=== PATIENT | female | born 1975 | race Caucasian/White ===

== ENCOUNTER 2017-02-13 00:15 | Emergency (ER) | payer OTHER ==
[2017-02-13] MEDS ORDERED: Sodium Chloride 0.9% 10 ML Syringe FLUSH PRN (00:30)
[2017-02-13] MEDS ORDERED: Ketorolac 30 MG/ML SDV IVPUSH ONE (00:34)
[2017-02-13] MEDS ORDERED: methylPREDNISolone Sodium Succinate 125 MG/2 ML SDV IV ONE (00:34)
[2017-02-13 02:39] LABS: CHLORIDE,CL 104 mmol/L (98-107); SODIUM,NA 137 mmol/L (136-145)
[2017-02-13] MEDS ORDERED: Azithromycin 250 MG Tab PO ONE (02:43)
[2017-02-13 03:24] VITALS: BP 156/87
--- NOTE | 2017-02-13 06:56 | ER ---
Date of Service: 02/13/2017 SUBJECTIVE: Brisa presents to the emergency room with complaints of substernal chest pain. The patient states that the discomfort is respirophasic in nature. She states that she has had a nonproductive cough for several days as well. She is a tobacco user and does smoke approximately a pack of cigarettes per day. The patient states that the discomfort is located to the midsternal area and again is worse with deep breathing and movement. PAST MEDICAL HISTORY: 1. Cholecystectomy. 2. depression. 3. 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 MEDICATIONS: 1. Nortriptyline 10 mg at bedtime. 2. Zolpidem 12.5 mg at bedtime. ALLERGIES: NKDA. REVIEW OF SYSTEMS: General: No fever or chills. HEENT: No sore throat, rhinorrhea, or congestion. Respiratory: No shortness of breath. Cardiac: Please see history of present illness. Denies any jaw, arm, neck, or back pain. Denies any diaphoresis. GI: No nausea, vomiting, or diarrhea. No melena, hematochezia, or hematemesis. : Denies any dysuria. Musculoskeletal: No myalgias or arthralgias. Neurologic: No fainting, blackouts, or lightheadedness. PHYSICAL EXAMINATION: General: This is a 41-year-old female patient. No acute distress. Vital Signs: Blood pressure initially 171/110, was rechecked and was found to be 160/70, pulse rate is 111, temperature is 37.7, respiratory rate is 16, and O2 saturations 99% on room air. Skin: Warm, pink, and dry. HEENT: Mouth, oral mucosa is moist. Lungs: Diminished in the mid lung cortes. Heart: Regular rate and rhythm. Abdomen: Soft, nontender. There is no hepatosplenomegaly or masses noted. Extremities: Without edema. Neurologic: She is alert and oriented. Answers all questions appropriately. Her speech is fluent. Her gait is within normal limits. RADIOGRAPHIC DATA: PA and lateral chest x-ray was obtained. She did have evidence of some increased peribronchial markings consistent with bilateral bronchitis. No obvious infiltrate noted. LABORATORY DATA: WBCs 7.5, hemoglobin is 15.2, platelets are 322. PT is 11.1, INR is 1.0, D-dimer is 0.33. Comprehensive metabolic panel was obtained. Sodium is 137, potassium is 3.7, chloride is 104, bicarb is 23, BUN is 4, creatinine is 0.8. Creatinine clearance is 87.51. GFR is greater than 60. Glucose is 104. Lactic acid is 0.6, calcium is 8.2, corrected calcium is 8.76. Total bilirubin is 0.3. AST is 11, ALT is 24, alkaline phosphatase is 67, CK is 55, troponin is less than 0.017. C-reactive protein is less than 0.2. Albumin is 3.3. TSH is 1.129. EMERGENCY ROOM COURSE: IV access was established. The patient was given Solu- Medrol 125 mg IV and Toradol 30 mg IV. She did report improvement in her chest discomfort. She stated that her pain improved from an 8 to a 4. ASSESSMENT: 1. Acute bronchitis. 2. Early chronic obstructive pulmonary disease. 3. Costochondritis. PLAN: The patient was started on prednisone 40 mg daily for 5 days. She was given azithromycin 500 mg here in the ER. We will start her on Zithromax 250 mg once daily on days 2 through 5. For her chest discomfort, ibuprofen or naproxen. Follow up in the clinic in the next 5 to 7 days. All questions were answered. MWK: 02/13/2017 03:07:33 MODL: 02/13/2017 03:55:48 /[id number]
== END 2017-02-13 03:01 | disposition home or self-care (01) ==
LOC: VM.ED 00:15
DX: J20.9 Acute bronchitis, unspecified (principal); J44.9 Chronic obstructive pulmonary disease, unspecified; M94.0 Chondrocostal junction syndrome [Tietze]; Z79.899 Other long term (current) drug therapy
CPT/HCPCS: 36415; 71020; 80053; 82550; 83605; 84443; 84484; 85025; 85379; 85610; 86140; 87040; 87804; 93005; 96374; 96375; 99284; A9270; J1885; J2930

== ENCOUNTER 2017-04-02 04:03 | Emergency (ER) | payer MEDICAID, OTHER ==
[2017-04-02 04:07] VITALS: BP 153/102
--- NOTE | 2017-04-02 04:13 | EDM.PDOC ---
ED HPI GENERAL MEDICAL PROBLEM - General Chief Complaint: ENT Problem Stated Complaint: Head and Ear Pain Time Seen by Provider: 04/02/17 04:07 Source of Information: Reports: Patient, Family, RN History Limitations: Reports: No Limitations - History of Present Illness INITIAL COMMENTS - FREE TEXT/NARRATIVE: Patient presents to the ED at [facility] complaining of left ear pain and a headache. This patient is very well known to me from the [facility]. Patient has been dealing with left ear pain for over a year. She has had 2 MRI' s and seen three different ENT specialists. She had been diagnosed with mastoidistis in the past. She was recently put on another course of antibiotics last month for the same problems. Patient has also had a myringotomy in the past as well for her left ear pain. Patient is currently a patient with the [facility]. She recently saw her PCP yesterday for this same complaint. Patient states she was put on diclofenac "and it just not working." Duration: Chronic Quality: Reports: Sharp, Stabbing Severity: Severe Improves with: Reports: None Worsens with: Reports: Movement Context: Denies: Activity, Exercise, Lifting, Sick Contact, Trauma Associated Symptoms: Reports: No Other Symptoms - Related Data Allergies Allergy/AdvReac Type Severity Reaction Status Date / Time No Known Allergies Allergy Verified 04/02/17 04:09 Home Meds: Home Meds Zolpidem Tartrate [Ambien Cr] 12.5 mg PO BEDTIME 11/29/16 [History] Past Medical History HEENT History: Reports: Other (See Below) Other HEENT History: ear pain Psychiatric History: Reports: Other (See Below) Other Psychiatric History: depression 16 yrs ago - Past Surgical History HEENT Surgical History: Reports: Myringotomy w Tube(s), Other (See Below) GI Surgical History: Reports: Cholecystectomy, Other (See Below) Social & Family History - Tobacco Use Smoking Status *Q: Current Every Day Smoker Years of Tobacco use: 20 Packs/Tins Daily: 0.5 - Recreational Drug Use Recreational Drug Use: No ED ROS ENT - Review of Systems Review Of Systems: See Below Constitutional: Denies: Fever, Chills, Weakness HEENT: Reports: Ear Pain Respiratory: Denies: Shortness of Breath, Cough Cardiovascular: Denies: Chest Pain, Palpitations GI/Abdominal: Denies: Abdominal Pain, Nausea, Vomiting Skin: Reports: No Symptoms Neurological: Reports: Dizziness, Headache ED EXAM, ENT - Physical Exam Exam: See Below Exam Limited By: No Limitations General Appearance: Alert, No Apparent Distress Eye Exam: Bilateral Eye: EOMI, Normal Inspection, PERRL Ears: Canal Swelling (Left), TM Erythema (Left) Mouth/Throat: Normal Inspection, Normal Oropharynx Head: Atraumatic, Normocephalic Neck: Supple Respiratory/Chest: No Respiratory Distress, Lungs Clear, Normal Breath Sounds Cardiovascular: Regular Rate, Rhythm Neurological: Alert, Oriented Skin: Warm, Dry, Intact, Normal Color, No Rash Course - Vital Signs Last Recorded V/S: Last Vital Signs Temp 36.4 C 04/02/17 04:05 Pulse 120 H 04/02/17 04:05 Resp 18 04/02/17 04:05 BP 153/102 H 04/02/17 04:05 Pulse Ox 98 04/02/17 04:05 - Orders/Labs/Meds Orders: Active Orders 24 hr Category Date Time Status chlorproMAZINE [Thorazine] Med 04/02/17 04:29 Once 50 mg IM ONETIME ONE Departure - Departure Time of Disposition: 04:27 Disposition: Home, Self-Care 01 Condition: good Clinical Impression: Chronic left ear pain - Discharge Information Instructions: Earache Referrals: Kim Donnelly MD [Primary Care Provider] - Forms: ED Department Discharge Additional Instructions: 1. See your Primary as symptoms warrant - Problem List Review Problem List Initiated/Reviewed/Updated: Yes - My Orders Last 24 Hours: My Active Orders 04/02/17 04:29 chlorproMAZINE [Thorazine] 50 mg IM ONETIME ONE - Assessment/Plan Last 24 Hours: My Active Orders 04/02/17 04:29 chlorproMAZINE [Thorazine] 50 mg IM ONETIME ONE
== END 2017-04-02 04:44 | disposition home or self-care (01) ==
LOC: VM.ED 04:03
DX: H92.02 Otalgia, left ear (principal); G89.29 Other chronic pain; F17.210 Nicotine dependence, cigarettes, uncomplicated; Z96.22 Myringotomy tube(s) status; Z90.49 Acquired absence of other specified parts of digestive tract
CPT/HCPCS: 96372; 99282; J3230

== ENCOUNTER 2017-12-05 00:19 | Emergency (ER) | payer OTHER, MEDICAID ==
[2017-12-05] MEDS ORDERED: Ondansetron 4 MG/2 ML SDV IM ONE (00:54)
[2017-12-05] MEDS ORDERED: diphenhydrAMINE 50 MG/ML SDV IM ONE (00:54)
[2017-12-05] MEDS ORDERED: Ketorolac 30 MG/ML SDV IM ONE (00:54)
--- NOTE | 2017-12-05 01:01 | EDM.PDOC ---
ED HPI GENERAL MEDICAL PROBLEM - General Chief Complaint: Headache Stated Complaint: Headache Time Seen by Provider: 12/05/17 00:45 Source of Information: Reports: Patient History Limitations: Reports: No Limitations - History of Present Illness INITIAL COMMENTS - FREE TEXT/NARRATIVE: Patient comes in with chronic ear discomfort she's been seen by multiple ENT specialists she states his pain every couple months needing to come into the emergency department for relief because the pain gets so significant symptoms and causing her to have a migraine. Patient does not have any long-term pain medication management related to this. Denies any other symptoms. Onset: Gradual Duration: Constant Quality: Reports: Pressure, Sharp Severity: Moderate Improves with: Reports: Immobilization Worsens with: Reports: Movement Associated Symptoms: Reports: Headaches, Nausea/Vomiting. Denies: Rash, Seizure , Shortness of Breath, Syncope, Weakness - Related Data Allergies Allergy/AdvReac Type Severity Reaction Status Date / Time No Known Allergies Allergy Verified 04/02/17 04:09 Home Meds: Home Meds Zolpidem Tartrate [Ambien Cr] 12.5 mg PO BEDTIME 11/29/16 [History] Past Medical History HEENT History: Reports: Other (See Below) Other HEENT History: ear pain Psychiatric History: Reports: Other (See Below) Other Psychiatric History: depression 16 yrs ago - Past Surgical History HEENT Surgical History: Reports: Myringotomy w Tube(s), Other (See Below) GI Surgical History: Reports: Cholecystectomy, Other (See Below) Social & Family History - Tobacco Use Smoking Status *Q: Current Every Day Smoker Years of Tobacco use: 20 Packs/Tins Daily: 0.5 - Recreational Drug Use Recreational Drug Use: No ED ROS GENERAL - Review of Systems Review Of Systems: See Below Constitutional: Reports: No Symptoms HEENT: Reports: No Symptoms Respiratory: Reports: No Symptoms Cardiovascular: Reports: No Symptoms GI/Abdominal: Reports: No Symptoms - Physical Exam Exam: See Below Exam Limited By: No Limitations General Appearance: Alert, WD/WN, No Apparent Distress Ears: Normal External Exam, Normal Canal, Hearing Grossly Normal, Normal TMs Nose: Normal Inspection, Normal Mucosa, No Blood Head Exam: Atraumatic, Normocephalic Neck: Normal Inspection, Supple, Non-Tender Course - Orders/Labs/Meds Meds: Medications Discontinued Medications Generic Name Dose Route Start Last Admin Trade Name Freq PRN Reason Stop Dose Admin Diphenhydramine HCl 25 mg 12/05/17 00:54 Benadryl IM 12/05/17 00:55 ONETIME ONE Ketorolac Tromethamine 30 mg 12/05/17 00:54 Toradol IM 12/05/17 00:55 ONETIME ONE Ondansetron HCl 4 mg 12/05/17 00:54 Zofran IM 12/05/17 00:55 ONETIME ONE Departure - Departure Time of Disposition: 01:30 Disposition: Home, Self-Care 01 Condition: Good (decreased in discomfort at time of departure ) Clinical Impression: Chronic ear pain Qualifiers: Laterality: bilateral Qualified Code(s): H92.03 - Otalgia, bilateral - Discharge Information Forms: ED Department Discharge
[2017-12-05 06:45] VITALS: BP 130/103
== END 2017-12-05 01:35 | disposition home or self-care (01) ==
LOC: SUPCPDRO 00:19 → VM.ED 00:19
DX: G89.29 Other chronic pain (principal); H92.03 Otalgia, bilateral; F17.210 Nicotine dependence, cigarettes, uncomplicated; Z96.22 Myringotomy tube(s) status
CPT/HCPCS: 96372; 99283; J1200; J1885; J2405